=== PATIENT | male | born 1955 | race Two or more races ===

== ENCOUNTER 2019-08-13 22:20 | Emergency (ER) | payer SELFPAY ==
[~2019-08-13] VITALS: Ht 165.1 cm; Wt 81.6 kg
[2019-08-14 01:25] VITALS: BP 159/75
[2019-08-14] MEDS ORDERED: TETRACAINE HCL 0.5% OPTH(EYE) SOLN 4ML LEFTEYE ONE (01:45)
[2019-08-14] MEDS ORDERED: FLUORESCEIN SOD 1 MG TEST STRIP LEFTEYE ONE (01:45)
== END 2019-08-14 02:32 | disposition home or self-care (01) ==
LOC: ER 22:20
DX: S05.02XA Injury of conjunctiva and corneal abrasion without foreign body, left eye, initial encounter (principal); H11.32 Conjunctival hemorrhage, left eye; I10 Essential (primary) hypertension; Z88.8 Allergy status to other drugs, medicaments and biological substances; W22.8XXA Striking against or struck by other objects, initial encounter; Y93.89 Activity, other specified; Y99.8 Other external cause status; Y92.89 Other specified places as the place of occurrence of the external cause